=== PATIENT | male | born 1945 | race Caucasian/White ===

== ENCOUNTER → 2016-03-13 | Outpatient (CLI) | payer MEDICARE ==
[~2016-03-13] MED LIST: CONRAY-43 43% 50ML VIAL (Q9960) As Ordered ONE
--- NOTE | 2016-03-13 10:15 | REP ---
MR arthrography right shoulder: with pre- and post intra-articular gadolinium enhanced saline injected imaging: History: Right shoulder pain and limited range of motion. No comparison radiographs available. Technique: The injection procedure is performed and dictated separately. Pre and post intra-articular gadolinium enhanced saline injected imaging is acquired. Imaging planes include axial, oblique coronal, oblique sagittal and ABER projection images. T1 T2-weighted scans are included with and without fat saturation. MRI findings: Preinjection imaging demonstrates superior position of the humeral head relative to the glenoid with obliteration of the subacromial space consistent with a retracted supraspinatus cuff tear. There is fairly prominent supraspinatus muscle atrophy. Osteoarthritis is seen in the glenohumeral and acromioclavicular joints. There is fragmented spurring at the superior aspect of the AC joint. There is a subacromial subdeltoid bursal effusion and a small sliver of glenohumeral joint effusion on preinjection imaging. There is thickening and increased signal intensity in the infraspinatus tendon and probably in the subscapularis tendon on preinjection imaging. Chondromalacia is seen in the humeral head with a partial thickness articular cartilage defect 8 mm in anteroposterior dimension seen on axial preinjection T2-weighted images. There is subcortical cyst formation in the inferior and anterior aspect of the bony glenoid. Post injection imaging shows good filling and enhancement of the glenohumeral articulation. The subacromial subdeltoid bursal effusion is also enhanced confirming complete supraspinatus rotator cuff tear. There is enhancement on T1-weighted post injection images in the acromioclavicular joint as well. There is an anterior inferior glenoid labral cartilage tear which is confirmed on ABER as well as axial and coronal scans. The superior labrum does not appear disrupted. Impression: 1. Glenohumeral and acromioclavicular joint osteoarthritis. 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 2. Anterior inferior cartilaginous labral tear with subcortical cyst formation of the bony glenoid. 3. 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 4. Subscapularis and infraspinatus tendinosis change. 5. Subacromial subdeltoid bursal effusion. Signed by Ag Membreno MD 03/13/2016 08:08 P
--- NOTE | 2016-03-13 17:39 | REP ---
Procedure: Right shoulder arthrogram The procedure was performed under the direct supervision of Dr. Membreno. History: Right shoulder pain The benefits and risks including but not limited to pain, infection, bleeding and anaphylaxis were explained to the patient and informed consent was obtained. Technique: The right glenohumeral joint space was localized using fluoroscopic guidance. The skin was prepped and draped in a sterile fashion. 1% lidocaine was used as a local anesthetic. Using fluoroscopic guidance a 22 gauge spinal needle was inserted and advanced into the joint. 0.5 ml of Conray 43 was injected to verify placement. 11 ml of a solution containing 20 ml of sterile saline and 0.15 ml of ProHance was injected into the joint. The needle was removed and the patient was taken to MRI for postprocedural imaging. The patient tolerated the procedure well and there were no immediate complications. 1 second of of fluoro time was utilized for this procedure. Reviewed by ERIN Capps 03/13/2016 09:52 ASigned by Ag Membreno MD 03/13/2016 05:29 P
== END ==
LOC: M RADPRO 06:51
PROVIDERS: ATTEND Physician Assistant
DX: M75.101 Unspecified rotator cuff tear or rupture of right shoulder, not specified as traumatic (principal); M19.011 Primary osteoarthritis, right shoulder; M65.811 Other synovitis and tenosynovitis, right shoulder; M25.411 Effusion, right shoulder
CPT/HCPCS: 23350; 73223; 77002; A9576; Q9960